=== PATIENT | female | born 1985 | race Two or more races ===

== ENCOUNTER 2019-02-07 08:40 | Emergency (ER) | payer OTHER ==
[2019-02-07 08:48] VITALS: TEMP 98.3; BMI 28.5
--- NOTE | 2019-02-07 10:16 | PDOC ---
History of Present Illness - General Chief Complaint: Vaginal Bleeding Stated Complaint: 13 WEEK UT/VAGINAL BLEEDING Time Seen by Provider: 02/07/19 08:52 History Source: Patient - History of Present Illness Timing/Duration: reports: getting worse Past History - Past Medical History Allergies/Adverse Reactions: Allergies Allergy/AdvReac Type Severity Reaction Status Date / Time ibuprofen [From Advil] Allergy Verified 02/07/19 08:45 Home Medications: Ambulatory Orders Vit 108/Iron/Folic AC [ One Tablet] 1 each PO DAILY 06/15/14 Folic Acid 0 mg PO 02/07/19 COPD: No - Reproductive History Is Patient Now?: Yes (#): 2 Para: 0 Cervical CA: No Dysfunctional Uterine Bleeding: No Ectopic : No Endometrial CA: No Polycystic Ovaries: No Therapeutic (s) & number: No Tubal Ligation: No Spontaneous : 2 - Suicide/Smoking/Psychosocial Hx Smoking Status: No Smoking History: Never smoked Have you smoked in the past 12 months: No Number of Cigarettes Smoked Daily: 0 Hx Alcohol Use: No Drug/Substance Use Hx: No Substance Use Type: None Hx Substance Use Treatment: No Review of Systems - Review of Systems Constitutional: No: Chills, Fever ABD/GI: Yes: Abdominal cramping. No: Nausea, Vomiting : No: Dysuria Musculoskeletal: No: Back Pain *Physical Exam - Vital Signs Last Vital Signs Temp Pulse Resp BP Pulse Ox 98.3 F 78 18 117/63 98 02/07/19 08:45 02/07/19 08:45 02/07/19 08:45 02/07/19 08:45 02/07/19 08:45 - Physical Exam General Appearance: Yes: Appropriately Dressed, Mild Distress HEENT: positive: Normal Voice Neck: positive: Supple Respiratory/Chest: negative: Respiratory Distress Female Pelvic Exam: positive: other (refuses pelvic exam entirely) Gastrointestinal/Abdominal: positive: Normal Bowel Sounds, Tender (minimdla ttp to lower abd diffusely), Soft. negative: Distended, Guarding, Rebound Musculoskeletal: negative: CVA Tenderness Integumentary: positive: Dry, Warm Neurologic: positive: Fully Oriented, Alert, Normal Mood/Affect ED Treatment Course - LABORATORY CBC & Chemistry Diagram: 02/07/19 17:44 02/07/19 17:44 - RADIOLOGY Radiology Studies Ordered: Category Date Time Status TRANSVAGINAL US PREG [US] Stat Ultrasound 02/07/19 09:06 Ordered Medical Decision Making - Medical Decision Making 02/07/19 09:59 33 yo F, , (s/p spon ABs x 3), ~11 weeks by dates, no care/US as of yet, here w/ worsening vag bleed w/ clots since yesterday. Now with lower abd discomfort. No dysuria, n/v/f/c See exam R/o ectopic vs spon AB in progress Stable w/ no sig ttp, refuses pelvic exam -US -labs -UA -reassess 02/07/19 10:47 Beta >4K. UA pending. Of note, pt A+ on multiple T&S here at [facility]. US read pending 02/07/19 11:45 US read as no IUP seen, possible missed AB w/ likely blood clots. Possible corpus luteal cyst in L ovary. Findings d/w pt who passed several blood clots while in ED but remains stable here. Consents to pelvic exam now and found to have multiple large clots in vaginal vault with significant bleeding, unable to visualize or palpate cervix at this time. 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 Paiz who now informs me that after 2 PM, Dr Yusuf is on. Will contact Freddy 02/07/19 16:57 After several hrs of paging [employer], no call back as of yet. On reassessment, patient states she continued to pass multiple large clots and has since noticed that bleeding has since subsided. No significant abdominal pain at this time. Labs pending. Will continue to try and reach [employer] 02/07/19 17:[address] [place] [address] Yusuf who states given ultrasound report, no need for D&C at this time. States patient can follow-up in office on Tuesday. CBC wnl. Mildly elevated LFTs, similar to prior labs based on chart review. Pt w/ no sig bleed or pain at this time. Will dc w/ strict return precautions *DC/Admit/Observation/Transfer Diagnosis at time of Disposition: Spontaneous - Discharge Dispostion Disposition: HOME Condition at time of disposition: Stable - Referrals - Patient Instructions Printed Discharge Instructions: DI for Miscarriage Additional Instructions: Unfortunately, you are having a miscarriage at this time. Your ultrasound shows no . Please follow-up with Dr. Yusuf of [employer] on Tuesday. Return to ER if symptoms worsen as discussed today Print Language: TRISTANIAN - Post Discharge Activity
[2019-02-07] MEDS ORDERED: SODIUM CHLORIDE 1,000 ML IV STA (14:13)
[2019-02-07 15:03] LABS: URINE APPEARANCE BLOODY; URINE COLOR RED
[2019-02-07 15:05] LABS: EPI CELLS 0.1 /HPF (0-5); URINE BACTERIA 0.2 /hpf (NEGATIVE); URINE CASTS 1.86 /hpf (0-8); URINE RBC 269.9 /hpf (0-4)
[2019-02-07 17:49] VITALS: BP 102/60; PULSE 81
[2019-02-07 17:51] LABS: BASO % 0.5 % (0-2.0); EOS % 1.5 % (0-4.5); HEMATOCRIT 37.1 % (32.4-45.2); HEMOGLOBIN 12.2 GM/dL (10.7-15.3); LYMPH % 23.8 % (8-40); MCH 25.7 pg (25.7-33.7); MEAN CELL VOLUME 77.8 fl (80-96); MEAN PLT VOLUME 8.7 fl (7.5-11.1); MONO % 4.6 % (3.8-10.2); NEUT % 69.6 % (42.8-82.8); PLATELET COUNT 161 K/MM3 (134-434); RBC 4.77 M/mm3 (3.60-5.2); RDW 24.5 % (11.6-15.6); WHITE BLOOD COUNT 8.3 K/mm3 (4.0-10.0)
[2019-02-07 18:03] LABS: INR 1.07 (0.83-1.09); PROTHROMBIN TIME (PATIENT) 12.6 SEC (9.7-13.0)
[2019-02-07 18:35] LABS: ALBUMIN 3.9 g/dl (3.4-5.0); ALK PHOS 146 U/L (45-117); ANION GAP 11 MMOL/L (8-16); BILIRUBIN,TOTAL 0.8 mg/dL (0.2-1); BLOOD UREA NITROGEN 10 mg/dL (7-18); CALCIUM 8.4 mg/dL (8.5-10.1); CHLORIDE 106 mmol/L (98-107); CO2 22 mmol/L (21-32); CREATININE 0.4 mg/dL (0.55-1.3); GLUCOSE,RANDOM 88 mg/dL (74-106); POTASSIUM 3.6 mmol/L (3.5-5.1); SGOT/AST 64 U/L (15-37); SGPT/ALT 188 U/L (13-61); SODIUM 139 mmol/L (136-145); TOT PROT 7.2 g/dl (6.4-8.2)
[2019-02-07 19:54] LABS: ANISOCYTOSIS 2+
--- NOTE | 2019-02-12 15:29 | PATH ---
Surgical Pathology Report Patient Name: PAULINE SMALLWOOD Med. Rec. #: [id number] /Age/Gender: 1985 (Age: 33) / F Account: [id number] Location: EMERGENCY ROOM Taken: 02/07/2019 Received: 02/08/2019 Reported: 02/12/2019 Physicians: [facility] EMERGENCY DEPT Specimen(s) Received PRODUCTS OF CONCEPTION Clinical History Spontaneous -products of conception Final Diagnosis PRODUCTS OF CONCEPTION, DILATION AND CURETTAGE: IMMATURE CHORIONIC VILLI AND DECIDUA CONSISTENT WITH PRODUCTS OF CONCEPTION. Electronically Signed Sophia Carcamo M.D. Gross Description Received in formalin labeled with the patient's name and indicated on the requisition to be products of conception, is a 62 g, 11.0 x 8.5 x 1.5 cm portion of lemus-brown tissue, consistent with products of conception. No somatic tissue is identified. Entire specimen submitted in 7 cassettes. /02/08/2019 saudi02/08/2019
== END 2019-02-07 18:50 | disposition home or self-care (01) ==
LOC: JER 08:40
PROC: 3E0337Z Introduction of Electrolytic and Water Balance Substance into Peripheral Vein, Percutaneous Approach (ICD-10-PCS; principal; 2019-02-07)
DX: O03.9 Complete or unspecified spontaneous abortion without complication (principal)
CPT/HCPCS: 36415; 76815-TC; 80053; 81003; 84702; 85025; 85610; 86850; 86900; 86901; 88305-TC; 96360; 99282-25; J7030